=== PATIENT | male | born 1985 | race Caucasian/White ===

== ENCOUNTER 2020-12-03 00:50 | Observation (INO) ==
[2020-12-03] MEDS ORDERED: Ipratropium/Albuterol Neb 3 ML ONE (00:57)
[2020-12-03] MEDS ORDERED: Ipratropium/Albuterol Neb 3 ML IH ONE (01:08)
[2020-12-03] MEDS ORDERED: Isovue-370 500 ML BOTTLE IVP ONE (01:44)
[2020-12-03 02:28] LABS: Eosinophils % 0.1 %; Red Cell Distribution Width 12.2 % (11.5-14.5)
[2020-12-03 02:29] LABS: Basophils # 0.1 K/mcL (0.0-0.2); Basophils % 0.3 %; Hematocrit 42.8 % (37.5-50.1); Lymphocytes # 1.6 K/mcL (0.6-4.6); Lymphocytes % 4.5 %; Mean Corpuscular HGB Conc 32.7 g/dL (31.6-35.5); Mean Corpuscular Hemoglobin 29.9 pg (28.0-33.3); Mean Corpuscular Volume 91.3 fL (83.0-100.0); Mean Platelet Volume 9.2 fL (9.4-12.4); Monocytes # 2.4 K/mcL (0.0-1.3); Monocytes % 6.8 %; Neutrophils # 30.3 K/mcL (1.6-8.9); Platelet Count 334 K/mcL (140-400); Red Blood Count 4.69 M/mcL (4.19-5.50); Segmented Neutrophils % 87.3 %
[2020-12-03 02:40] LABS: BUN/Creatinine Ratio 14 (6-26); Blood Urea Nitrogen 12 mg/dL (6-20); Calcium 9.4 mg/dL (8.6-10.3); Carbon Dioxide 24 mEq/L (23-29); Chloride 96 mEq/L (98-107); Glucose 118 mg/dL (70-105); Osmolality,Calculated 269 (280-300); Potassium 4.2 mEq/L (3.5-5.1); Sodium 129 mEq/L (136-145); eGFR For African Americans > 60 (> 60); eGFR For Non-African Americans > 60 (> 60)
[2020-12-03 02:41] LABS: Troponin I 0.03 ng/mL (< 0.04)
[2020-12-03 02:47] LABS: White Blood Count 34.7 K/mcL (4.3-11.1)
[2020-12-03] MEDS ORDERED: Piperacillin/Tazobactam 3.375 GM in 0.9 % Sodium Chloride Mini Bag 100 ML IVPB ONE (02:51)
[2020-12-03] MEDS ORDERED: Vancomycin 1,500 MG/265 ML IV.SOLN IVPB ONE (03:00)
[2020-12-03 03:04] LABS: Platelet Estimate Normal (Normal); Toxic Granulation Present (Not Present)
[2020-12-03] MEDS ORDERED: 0.9 % Sodium Chloride 1,000 ML IVC ONE (03:46)
[2020-12-03] MEDS ORDERED: Gadolinium Contrast Agent (WT Based) IV PRN (03:52)
[2020-12-03] MEDS ORDERED: *HR* FentaNYL (PF) 100 MCG/2 ML VIAL IVP ONE (03:53)
[2020-12-03] MEDS ORDERED: Morphine Sulfate 2 MG/ML SYRINGE IVP ONE ×2 (05:42→05:44)
[2020-12-03] MEDS ORDERED: Melatonin 3 MG TABLET PO PRN (08:16)
[2020-12-03] MEDS ORDERED: Ondansetron 4 MG/2 ML VIAL IVP PRN (08:16)
[2020-12-03] MEDS ORDERED: Naloxone 0.4 MG/ML INJ IVP PRN (08:16)
[2020-12-03] MEDS ORDERED: Ipratropium/Albuterol Neb 3 ML IH PRN (08:39)
[2020-12-03 09:02] LABS: INR 1.5; Prothrombin Time 17.4 Seconds (9.4-12.1)
[2020-12-03 09:13] LABS: Magnesium 1.5 mg/dL (1.6-2.6); Phosphorous 2.7 mg/dL (2.7-4.5)
[2020-12-03] MEDS: *HR* OxyCODONE Immed Rel 5 MG TABLET PO PRN ×2 (10:43→18:35)
[2020-12-03] MEDS: Nicotine 21 MG PATCH.TD24 TD SCH (10:43)
[2020-12-03] MEDS: Ipratropium/Albuterol Neb 3 ML IH SCH ×5 (10:44→23:44)
[2020-12-03] MEDS: Piperacillin/Tazobactam 3.375 GM in 0.9 % Sodium Chloride Mini Bag 100 ML IVPB SCH ×2 (11:43→20:14)
[2020-12-03] MEDS: Vancomycin 1,500 MG/265 ML IV.SOLN IVPB SCH (14:49)
[2020-12-03] MEDS: *HR* HYDROcodone/Acet 5/325 mg TABLET PO PRN ×2 (14:49→23:51)
[2020-12-03 14:56] LABS: Bilirubin,Urine Negative (Negative); Blood,Urine Trace (Negative); Clarity,Urine Clear (Clear); Color,Urine Light-Orange (Yellow); Glucose,Urine (UA) Normal (Normal); Ketones,Urine Negative (Negative); Leukocyte Esterase,Urine Negative (Negative); Mucus,Urine Few per lpf (None-Few); Nitrite,Urine Negative (Negative); Protein,Urine 30 mg/dL (Neg-Trace); RBC,Urine 0-3 per hpf (0-3); Specific Gravity,Urine > 1.030 (1.010-1.025); Urobilinogen,Urine Normal (Normal); WBC,Urine 0-3 per hpf (0-3)
[2020-12-03 15:11] LABS: Amphetamine Screen,Urine Positive ng/mL (Cutoff=1000); Barbiturate Screen,Urine Negative ng/mL (Cutoff=200); Benzodiazepines Screen,Urine Negative ng/mL (Cutoff=200); Cannabinoid Screen,Urine Positive ng/mL (Cutoff = 50); Cocaine Screen,Urine Negative ng/mL (Cutoff= 300); Opiate Screen,Urine Positive ng/mL (Cutoff=300); Phencyclidine Screen,Urine Negative ng/mL (Cutoff=25)
[2020-12-03] MEDS: Ringers Solution, Lactated 1,000 ML IVC SCH (18:35)
[2020-12-03] MEDS: predniSONE 20 MG TABLET PO SCH (18:45)
[2020-12-03 19:12] LABS: Adenovirus Not Detected (Not Detect); Bordetella Pertussis Not Detected (Not Detect); Chlamydophila pneumoniae Not Detected (Not Detect); Coronavirus 229E Not Detected (Not Detect); Coronavirus HKU1 Not Detected (Not Detect); Coronavirus NL63 Not Detected (Not Detect); Coronavirus OC43 Not Detected (Not Detect); Human Metapneumovirus Not Detected (Not Detect); Human Rhinovirus/Enterovirus Not Detected (Not Detect); Influenza A Subtype 2009 H1 Not Detected (Not Detect); Influenza B Not Detected (Not Detect); Mycoplasma pneumoniae Not Detected (Not Detect); Parainfluenza Virus 1 Not Detected (Not Detect); Parainfluenza Virus 2 Not Detected (Not Detect); Parainfluenza Virus 3 Not Detected (Not Detect); Parainfluenza Virus 4 Not Detected (Not Detect); Respiratory Syncytial Virus Not Detected (Not Detect)
[2020-12-04] MEDS: Vancomycin 1,500 MG/265 ML IV.SOLN IVPB SCH ×3 (02:42→23:31)
[2020-12-04 03:30] LABS: Monocytes % 2.4 %
[2020-12-04 03:31] LABS: Basophils % 0.2 %; Hematocrit 39.3 % (37.5-50.1); Hemoglobin 12.6 g/dL (12.9-16.9); Immature Granulocytes % 1.1 % (0-4); Lymphocytes % 3.3 %; Mean Corpuscular HGB Conc 32.1 g/dL (31.6-35.5); Mean Corpuscular Hemoglobin 29.4 pg (28.0-33.3); Mean Corpuscular Volume 91.8 fL (83.0-100.0); Mean Platelet Volume 9.6 fL (9.4-12.4); Monocytes # 0.6 K/mcL (0.0-1.3); Neutrophils # 23.9 K/mcL (1.6-8.9); Platelet Count 283 K/mcL (140-400); Red Blood Count 4.28 M/mcL (4.19-5.50); Red Cell Distribution Width 12.4 % (11.5-14.5); White Blood Count 25.7 K/mcL (4.3-11.1)
[2020-12-04 03:40] LABS: Alanine Aminotransferase 54 Units/L (7-52); Albumin 3.2 g/dL (3.5-5.7); Albumin/Globulin Ratio 0.9 (1.1-2.2); Alkaline Phosphatase 80 Units/L (34-104); Aspartate Amino Transferase 26 Units/L (13-39); BUN/Creatinine Ratio 13 (6-26); Bilirubin,Total 0.4 mg/dL (0.3-1.0); Blood Urea Nitrogen 10 mg/dL (6-20); Calcium 8.8 mg/dL (8.6-10.3); Carbon Dioxide 24 mEq/L (23-29); Chloride 100 mEq/L (98-107); Globulin 3.5 g/dL (2.4-3.5); Glucose 149 mg/dL (70-105); Magnesium 2.4 mg/dL (1.6-2.6); Osmolality,Calculated 276 (280-300); Phosphorous 2.7 mg/dL (2.7-4.5); Potassium 4.1 mEq/L (3.5-5.1); Sodium 132 mEq/L (136-145); Total Protein 6.7 g/dL (6.4-8.9); eGFR For African Americans > 60 (> 60); eGFR For Non-African Americans > 60 (> 60)
[2020-12-04 03:42] LABS: Basophils # 0.1 K/mcL (0.0-0.2); Lymphocytes # 0.9 K/mcL (0.6-4.6)
[2020-12-04 03:57] LABS: Platelet Estimate Normal (Normal); Reactive Lymphocytes Present (Not Present)
[2020-12-04] MEDS: Ipratropium/Albuterol Neb 3 ML IH SCH ×6 (04:07→23:33)
[2020-12-04] MEDS: Piperacillin/Tazobactam 3.375 GM in 0.9 % Sodium Chloride Mini Bag 100 ML IVPB SCH ×3 (04:48→20:27)
[2020-12-04] MEDS: Acetaminophen 325 MG TABLET PO PRN ×2 (04:55→11:54)
[2020-12-04] MEDS: *HR* Enoxaparin 40 MG/0.4 ML SYRINGE SQ SCH (04:58)
[2020-12-04] MEDS: *HR* HYDROcodone/Acet 5/325 mg TABLET PO PRN ×3 (08:29→20:44)
[2020-12-04] MEDS: Nicotine 21 MG PATCH.TD24 TD SCH (08:29)
[2020-12-04] MEDS: predniSONE 20 MG TABLET PO SCH (08:29)
[2020-12-04] MEDS: Ringers Solution, Lactated 1,000 ML IVC SCH (08:32)
[2020-12-05 01:30] LABS: Basophils % 0.2 %; Eosinophils % 0.1 %; Hematocrit 36.6 % (37.5-50.1); Hemoglobin 11.9 g/dL (12.9-16.9); Immature Granulocytes % 1.1 % (0-4); Lymphocytes # 1.8 K/mcL (0.6-4.6); Lymphocytes % 9.5 %; Mean Corpuscular HGB Conc 32.5 g/dL (31.6-35.5); Mean Corpuscular Hemoglobin 29.4 pg (28.0-33.3); Mean Corpuscular Volume 90.4 fL (83.0-100.0); Mean Platelet Volume 9.5 fL (9.4-12.4); Monocytes # 0.8 K/mcL (0.0-1.3); Monocytes % 4.4 %; Neutrophils # 15.7 K/mcL (1.6-8.9); Platelet Count 297 K/mcL (140-400); Red Blood Count 4.05 M/mcL (4.19-5.50); Red Cell Distribution Width 12.3 % (11.5-14.5); Segmented Neutrophils % 84.7 %; White Blood Count 18.5 K/mcL (4.3-11.1)
[2020-12-05 01:45] LABS: Alanine Aminotransferase 43 Units/L (7-52); Alkaline Phosphatase 62 Units/L (34-104); Aspartate Amino Transferase 18 Units/L (13-39); BUN/Creatinine Ratio 19 (6-26); Bilirubin,Total 0.2 mg/dL (0.3-1.0); Blood Urea Nitrogen 12 mg/dL (6-20); Calcium 8.1 mg/dL (8.6-10.3); Carbon Dioxide 24 mEq/L (23-29); Chloride 106 mEq/L (98-107); Globulin 3.1 g/dL (2.4-3.5); Glucose 125 mg/dL (70-105); Osmolality,Calculated 281 (280-300); Potassium 3.9 mEq/L (3.5-5.1); Sodium 135 mEq/L (136-145); Total Protein 6.1 g/dL (6.4-8.9); eGFR For African Americans > 60 (> 60); eGFR For Non-African Americans > 60 (> 60)
[2020-12-05] MEDS: Piperacillin/Tazobactam 3.375 GM in 0.9 % Sodium Chloride Mini Bag 100 ML IVPB SCH ×3 (03:34→20:27)
[2020-12-05] MEDS: Ipratropium/Albuterol Neb 3 ML IH SCH ×6 (03:46→23:25)
[2020-12-05] MEDS: *HR* Enoxaparin 40 MG/0.4 ML SYRINGE SQ SCH (06:28)
[2020-12-05] MEDS: *HR* HYDROcodone/Acet 5/325 mg TABLET PO PRN ×3 (06:32→20:31)
[2020-12-05] MEDS: BuPROPion XL (24 HR) 150 MG TABLET PO SCH (07:26)
[2020-12-05] MEDS: Nicotine 21 MG PATCH.TD24 TD SCH (07:26)
[2020-12-05] MEDS: predniSONE 20 MG TABLET PO SCH (07:26)
[2020-12-05] MEDS: Vancomycin 1,500 MG/265 ML IV.SOLN IVPB SCH (07:27)
[2020-12-06] MEDS: Ipratropium/Albuterol Neb 3 ML IH SCH ×6 (03:34→23:07)
[2020-12-06] MEDS: Piperacillin/Tazobactam 3.375 GM in 0.9 % Sodium Chloride Mini Bag 100 ML IVPB SCH ×3 (03:56→21:43)
[2020-12-06 05:38] LABS: Basophils # 0.1 K/mcL (0.0-0.2); Basophils % 0.5 %; Eosinophils # 0.1 K/mcL (0.0-0.6); Eosinophils % 0.6 %; Hematocrit 34.9 % (37.5-50.1); Hemoglobin 11.5 g/dL (12.9-16.9); Immature Granulocytes % 0.7 % (0-4); Lymphocytes # 2.6 K/mcL (0.6-4.6); Lymphocytes % 24.4 %; Mean Corpuscular Hemoglobin 29.9 pg (28.0-33.3); Mean Corpuscular Volume 90.6 fL (83.0-100.0); Mean Platelet Volume 9.3 fL (9.4-12.4); Monocytes # 0.8 K/mcL (0.0-1.3); Monocytes % 7.3 %; Neutrophils # 7.2 K/mcL (1.6-8.9); Platelet Count 358 K/mcL (140-400); Red Blood Count 3.85 M/mcL (4.19-5.50); Red Cell Distribution Width 12.8 % (11.5-14.5); Segmented Neutrophils % 66.5 %; White Blood Count 10.8 K/mcL (4.3-11.1)
[2020-12-06] MEDS: *HR* Enoxaparin 40 MG/0.4 ML SYRINGE SQ SCH (06:27)
[2020-12-06] MEDS: BuPROPion XL (24 HR) 150 MG TABLET PO SCH (09:20)
[2020-12-06] MEDS: Nicotine 21 MG PATCH.TD24 TD SCH (09:20)
[2020-12-06] MEDS: predniSONE 20 MG TABLET PO SCH (09:20)
[2020-12-06] MEDS: *HR* HYDROcodone/Acet 5/325 mg TABLET PO PRN ×3 (09:24→21:43)
[2020-12-06 09:49] LABS: Alanine Aminotransferase 49 Units/L (7-52); Albumin 2.8 g/dL (3.5-5.7); Albumin/Globulin Ratio 0.9 (1.1-2.2); Alkaline Phosphatase 63 Units/L (34-104); Aspartate Amino Transferase 18 Units/L (13-39); BUN/Creatinine Ratio 18 (6-26); Bilirubin,Total 0.1 mg/dL (0.3-1.0); Blood Urea Nitrogen 17 mg/dL (6-20); Calcium 8.2 mg/dL (8.6-10.3); Carbon Dioxide 26 mEq/L (23-29); Chloride 107 mEq/L (98-107); Globulin 3.1 g/dL (2.4-3.5); Glucose 95 mg/dL (70-105); Osmolality,Calculated 289 (280-300); Potassium 3.9 mEq/L (3.5-5.1); Sodium 139 mEq/L (136-145); Total Protein 5.9 g/dL (6.4-8.9); eGFR For African Americans > 60 (> 60); eGFR For Non-African Americans > 60 (> 60)
[2020-12-07 03:01] LABS: Basophils # 0.1 K/mcL (0.0-0.2); Basophils % 0.5 %; Eosinophils % 0.3 %; Hemoglobin 12.1 g/dL (12.9-16.9); Immature Granulocytes % 1.3 % (0-4); Lymphocytes # 2.9 K/mcL (0.6-4.6); Lymphocytes % 26.2 %; Mean Corpuscular HGB Conc 31.8 g/dL (31.6-35.5); Mean Corpuscular Hemoglobin 29.7 pg (28.0-33.3); Mean Corpuscular Volume 93.1 fL (83.0-100.0); Mean Platelet Volume 9.1 fL (9.4-12.4); Monocytes # 0.8 K/mcL (0.0-1.3); Platelet Count 400 K/mcL (140-400); Red Blood Count 4.08 M/mcL (4.19-5.50); Red Cell Distribution Width 12.4 % (11.5-14.5); Segmented Neutrophils % 64.7 %; White Blood Count 10.9 K/mcL (4.3-11.1)
[2020-12-07 03:20] LABS: Alanine Aminotransferase 38 Units/L (7-52); Alkaline Phosphatase 58 Units/L (34-104); Aspartate Amino Transferase 11 Units/L (13-39); BUN/Creatinine Ratio 25 (6-26); Bilirubin,Total 0.2 mg/dL (0.3-1.0); Blood Urea Nitrogen 20 mg/dL (6-20); Calcium 8.5 mg/dL (8.6-10.3); Carbon Dioxide 27 mEq/L (23-29); Chloride 103 mEq/L (98-107); Globulin 3.1 g/dL (2.4-3.5); Glucose 85 mg/dL (70-105); Osmolality,Calculated 284 (280-300); Potassium 4.2 mEq/L (3.5-5.1); Sodium 136 mEq/L (136-145); Total Protein 6.1 g/dL (6.4-8.9); eGFR For African Americans > 60 (> 60); eGFR For Non-African Americans > 60 (> 60)
[2020-12-07] MEDS: Ipratropium/Albuterol Neb 3 ML IH SCH ×3 (03:57→11:32)
[2020-12-07] MEDS: *HR* Enoxaparin 40 MG/0.4 ML SYRINGE SQ SCH (05:28)
[2020-12-07] MEDS: Piperacillin/Tazobactam 3.375 GM in 0.9 % Sodium Chloride Mini Bag 100 ML IVPB SCH (05:28)
[2020-12-07] MEDS: BuPROPion XL (24 HR) 150 MG TABLET PO SCH (09:44)
[2020-12-07] MEDS: predniSONE 20 MG TABLET PO SCH (09:45)
[2020-12-07] MEDS: Nicotine 21 MG PATCH.TD24 TD SCH (09:45)
[2020-12-07] MEDS ORDERED: FLU Vac QV 20-21 (6Month+)/PF 0.5 ML SYRINGE IM ONE (10:26)
[2020-12-07 10:33] VITALS: BP 114/69
== END 2020-12-07 12:01 | disposition home or self-care (01) ==
LOC: SUATTDRO → 2NNU 00:50 → EMEROOARM 00:50 → SUATTDRO 09:04 → 2NNU 10:02 → 3ANU 12-05 14:46
PROVIDERS: ADMIT Internal Medicine; ATTEND Internal Medicine